=== PATIENT | female | born 1955 | race Caucasian/White ===

== ENCOUNTER → 2017-04-11 | Outpatient (CLI) | payer OTHER ==
--- NOTE | 2017-04-11 15:29 | XR ---
Limited left knee HISTORY: Trauma and pain 2 views of the left knee COMPARISON STUDY: None Bone mineralization and alignment are maintained. Loss of joint space in the medial compartment with marginal spurring. Spurring and joint space loss at the patellofemoral joint, there is a knee joint e ffusion. IMPRESSION: No fracture or dislocation. Osteoarthritis. Consider knee MRI.
== END | disposition home or self-care (01) ==
LOC: RADXRMAIN 12:33
PROVIDERS: ATTEND Family Medicine
DX: M17.12 Unilateral primary osteoarthritis, left knee (principal)